=== PATIENT | female | born 1965 | race Caucasian/White ===

== ENCOUNTER 2018-06-15 03:13 | Inpatient (IN) | payer SELFPAY ==
[~2018-06-15] VITALS: Ht 165.1 cm; Wt 133.3 kg
[2018-06-15] MEDS ORDERED: SODIUM CHLORIDE 0.9% 1,000 ML IV ONE ×2 (03:30→04:15)
[2018-06-15] MEDS ORDERED: MIDAZOLAM HCL 2 MG/2 ML VIAL IVP ONE (03:30)
[2018-06-15 03:35] LABS: BASOPHILS % (AUTO) 0.6 % (0.0-2.0); EOSINOPHILS % (AUTO) 2.8 % (1.0-6.0); HEMOGLOBIN 12.8 g/dL (12.0-16.0); LYMPHOCYTES # (AUTO) 9.5 K/uL (1.0-4.8); LYMPHOCYTES % (AUTO) 48.3 % (22.0-44.0); MEAN CORPUSCULAR HEMOGLOBIN 24.2 pg (26.0-34.0); MEAN CORPUSCULAR HGB CONC 28.2 G/dL (31.0-37.0); MEAN CORPUSCULAR VOLUME 86 fL (80-100); MONOCYTES % (AUTO) 4.9 % (2.0-9.0); NEUTROPHILS # (AUTO) 8.5 K/uL (1.8-7.7); NEUTROPHILS % (AUTO) 43.4 % (40.0-70.0); PLATELET COUNT (AUTO) 346 K/uL (150-450); RED BLOOD CELL COUNT(AUTO) 5.29 MIL/uL (4.00-5.20); RED CELL DISTRIBUTION WIDTH 17.6 % (11.5-14.5)
[2018-06-15 03:39] LABS: GLUCOSE,POINT OF CARE 373 MG/DL (70-110)
[2018-06-15] MEDS ORDERED: PROPOFOL 1000 MG/ISO-OSM 100 ML IV ONE (03:44)
[2018-06-15] MEDS ORDERED: NITROGLYCERIN 2% (1 GM=INCH) PACKET TP ONE (03:45)
[2018-06-15] MEDS: PROPOFOL 1000 MG/ISO-OSM 100 ML IV PRN ×6 (03:52→22:17)
[2018-06-15 03:53] LABS: ABG A-A DIFF O2 418.5 mmHg (10-20.0); ABG BASE EXCESS -14.4 mmol/L (-2.0-3.0); ABG CARBOXYHEMOGLOBIN 0.4 % (0.0-1.5); ABG HCO3 13.5 mmol/L (22.0-26.0); ABG METHEMOGLOBIN 0.3 % (0.0-1.5); ABG OXYGEN CONTENT 19.2 mL/dL (15.0-23.0); ABG OXYGEN SATURATION 99.1 % (95.0-98.0); ABG OXYHEMOGLOBIN 98.4 % (94.0-100.0); ABG PCO2 54 mmHg (35-45); ABG PH 7.079 (7.35-7.450); ABG TOTAL HEMOGLOBIN 13.5 G/dL (12.0-18.0); PO2, ARTERIAL BG 240.6 mmHg (66.0-74.0); SITE, BLOOD GAS RT RADIAL; SOURCE, BLOOD GAS ARTERIAL; TEMPERATURE, FAHRENHEIT, BG 98.6 FAHREN (96.0-98.6)
[2018-06-15 03:54] LABS: O2 DEVICE,BLOOD GAS VENTILATOR (ROOM AIR); PEEP,BG 5 cm H2O; VT, ABG 600 ml
[2018-06-15 04:03] LABS: B-TYPE NATRIURETIC PEPTIDE 1300 pg/mL (0-100)
[2018-06-15 04:07] LABS: ALANINE AMINOTRANSFERASE 20 U/L (12-78); ALBUMIN 2.3 g/dL (3.4-5.0); ALKALINE PHOSPHATASE 134 U/L (46-116); ANION GAP 21 mmol/L (8-16); ASPARTATE AMINOTRANSFERASE 54 U/L (15-37); BILIRUBIN,TOTAL 0.2 mg/dL (0.1-1.0); CALCIUM, TOTAL 8.8 mg/dL (8.8-10.5); CARBON DIOXIDE 18 mmol/L (22-29); CHLORIDE 100 mmol/L (98-107); CREATINE KINASE, TOTAL ONLY 89 U/L (26-192); CREATININE 1.75 mg/dL (0.60-1.30); GLOMERULAR FILTR. RATE CALC 25 mL/min (>60); LIPASE 233 U/L (73-393); POTASSIUM 3.9 mmol/L (3.5-5.1); SODIUM SERUM 139 mmol/L (136-145); TOTAL PROTEIN, SERUM 6.8 g/dL (6.4-8.2); UREA NITROGEN, BLOOD 21 mg/dL (7-18)
[2018-06-15 04:08] LABS: GLUCOSE,RANDOM 558 mg/dL (70-110)
[2018-06-15 04:14] LABS: APPEARANCE,URINE CLOUDY (CLEAR); BILIRUBIN,URINE NEGATIVE (NEGATIVE); GLUCOSE, URINE (UA) >=1000 mg/dL (NEGATIVE); KETONES,URINE NEGATIVE (NEGATIVE); LEUKOCYTE ESTERASE ,URINE NEGATIVE (NEGATIVE); NITRATE,URINE NEGATIVE (NEGATIVE); OCCULT BLOOD,URINE MODERATE (NEGATIVE); PH,URINE 6.5 (5.0-8.0); PROTEIN,URINE SEE CONFIRM (NEGATIVE); UROBILINOGEN,URINE 0.2 mg/dL (<=1.0)
[2018-06-15] MEDS ORDERED: ETOMIDATE 2 MG/ML 10 ML VIAL IVP ONE (04:15)
[2018-06-15 04:20] LABS: BACTERIA,URINE Moderate /HPF (None Seen); RBC,URINE 26-50 /HPF (0-2)
[2018-06-15 04:21] LABS: SQUAMOUS EPITHELIAL CELL,UR Rare /LPF (None Seen); SULFOSALICYLIC ACID,URINE 4+ (Negative)
[2018-06-15 04:22] LABS: AMPHET/METH SCREEN,URINE NEGATIVE (NEGATIVE); BARBITURATE SCREEN, URINE NEGATIVE (NEGATIVE); BENZODIAZEPINES SCREEN,URINE NEGATIVE (NEGATIVE); CANNABINOID SCREEN,URINE NEGATIVE (NEGATIVE); COCAINE SCREEN,URINE NEGATIVE (NEGATIVE); METHADONE SCREEN, URINE NEGATIVE (NEGATIVE); OPIATE SCREEN,URINE NEGATIVE (NEGATIVE)
[2018-06-15] MEDS ORDERED: LORazepam 2 MG/ML VIAL ONE (04:25)
[2018-06-15 04:26] LABS: PHENCYCLIDINE SCREEN,URINE NEGATIVE (NEGATIVE)
[2018-06-15 04:26] LABS: ACETAMINOPHEN < 2 mcg/mL (10-30)
[2018-06-15] MEDS ORDERED: LORazepam 2 MG/ML VIAL IVP ONE (04:30)
[2018-06-15] MEDS ORDERED: VANCOMYCIN HCL 1 GM/D5% WATER 200 ML IV ONE ×2 (04:30→06:30)
[2018-06-15] MEDS ORDERED: ONDANSETRON HCL 4 MG/2 ML VIAL IVP PRN (05:00)
[2018-06-15] MEDS ORDERED: INSULIN REGULAR, HUMAN 100 UNITS/ML IVP ONE ×2 (05:00→08:30)
[2018-06-15] MEDS ORDERED: ACETAMINOPHEN 325 MG TABLET PO PRN (05:00)
[2018-06-15] MEDS ORDERED: 0.9% SODIUM CHLORIDE 10 ML SYRINGE IVP PRN ×2 (05:00→08:15)
[2018-06-15 05:05] LABS: GLUCOSE,POINT OF CARE 491 MG/DL (70-110)
[2018-06-15 05:13] LABS: ABG A-A DIFF O2 568.9 mmHg (10-20.0); ABG BASE EXCESS -6.6 mmol/L (-2.0-3.0); ABG CARBOXYHEMOGLOBIN 0.5 % (0.0-1.5); ABG HCO3 19.3 mmol/L (22.0-26.0); ABG OXYGEN CONTENT 16.7 mL/dL (15.0-23.0); ABG OXYGEN SATURATION 97.1 % (95.0-98.0); ABG OXYHEMOGLOBIN 96.6 % (94.0-100.0); ABG PCO2 43 mmHg (35-45); ABG PH 7.284 (7.35-7.450); ABG TOTAL HEMOGLOBIN 12.2 G/dL (12.0-18.0); PO2, ARTERIAL BG 100.8 mmHg (66.0-74.0); SITE, BLOOD GAS RT RADIAL; SOURCE, BLOOD GAS ARTERIAL; TEMPERATURE, FAHRENHEIT, BG 98.6 FAHREN (96.0-98.6)
[2018-06-15 05:14] LABS: O2 DEVICE,BLOOD GAS VENTILATOR (ROOM AIR); PEEP,BG 5 cm H2O; VT, ABG 600 ml
[2018-06-15 05:31] LABS: HCG,QUANTITATIVE 3 mIU/mL (0-6)
[2018-06-15 05:59] LABS: CALCIUM, TOTAL 8.3 mg/dL (8.8-10.5); CREATININE 1.51 mg/dL (0.60-1.30); POTASSIUM 3.8 mmol/L (3.5-5.1)
[2018-06-15 06:00] VITALS: BP 124/90
[2018-06-15] MEDS ORDERED: PIPERACILLIN/TAZO 3.375 GM/D5W 50 ML IV SCH (06:00)
[2018-06-15 06:07] LABS: LACTIC ACID 3.5 mmol/L (0.4-2.0)
[2018-06-15 08:00] VITALS: BP_SYST 137; BP_SYST 148; BP_DIAS 71; BP_DIAS 73
[2018-06-15] MEDS ORDERED: SODIUM CHLORIDE 0.9% 1,000 ML IV SCH (08:20)
[2018-06-15] MEDS ORDERED: POTASSIUM CHL 20 MEQ/0.45% NS 1,000 ML IV PRN (08:20)
[2018-06-15] MEDS ORDERED: INSULIN REGULAR, HUMAN 100 UNITS in SODIUM CHLORIDE 0.9% 99 ML IV PRN ×2 (08:20)
[2018-06-15] MEDS ORDERED: POTASSIUM CHLORIDE 40 MEQ in SODIUM CHLORIDE 0.45% 1,000 ML IV PRN (08:20)
[2018-06-15] MEDS ORDERED: DEXTROSE 5%-0.45% SODIUM CHL 1,000 ML IV PRN (08:20)
[2018-06-15] MEDS ORDERED: SODIUM CHLORIDE 0.45% 1,000 ML IV PRN (08:20)
[2018-06-15] MEDS ORDERED: INSULIN REGULAR, HUMAN 100 UNITS/ML IVP PRN (08:30)
[2018-06-15] MEDS ORDERED: DEXTROSE 50%-WATER 25 GM/50 ML SYRINGE IVP PRN (08:30)
[2018-06-15] MEDS ORDERED: PANTOPRAZOLE SODIUM 40 MG/VIAL IVP SCH (09:00)
[2018-06-15 09:23] LABS: CALCIUM, TOTAL 8.4 mg/dL (8.8-10.5); CREATININE 1.42 mg/dL (0.60-1.30)
[2018-06-15 09:24] LABS: BASOPHILS % (AUTO) 1.1 % (0.0-2.0); EOSINOPHILS % (AUTO) 0.2 % (1.0-6.0); HEMOGLOBIN 11.6 g/dL (12.0-16.0); LYMPHOCYTES # (AUTO) 0.5 K/uL (1.0-4.8); LYMPHOCYTES % (AUTO) 4.2 % (22.0-44.0); MEAN CORPUSCULAR HEMOGLOBIN 24.2 pg (26.0-34.0); MEAN CORPUSCULAR HGB CONC 31.4 G/dL (31.0-37.0); MEAN CORPUSCULAR VOLUME 77 fL (80-100); MONOCYTES # (AUTO) 0.1 K/uL (0.1-1.0); MONOCYTES % (AUTO) 0.5 % (2.0-9.0); NEUTROPHILS # (AUTO) 12.1 K/uL (1.8-7.7); PLATELET COUNT (AUTO) 234 K/uL (150-450); RED BLOOD CELL COUNT(AUTO) 4.81 MIL/uL (4.00-5.20); RED CELL DISTRIBUTION WIDTH 16.7 % (11.5-14.5)
[2018-06-15 10:00] VITALS: BP 142/65
[2018-06-15] MEDS: PIPERACILLIN/TAZO 3.375 GM/D5W 50 ML IV SCH ×3 (11:13→22:18)
[2018-06-15 12:00] VITALS: BP 123/55
[2018-06-15] MEDS ORDERED: ETOMIDATE 2 MG/ML 10 ML VIAL IV ONE (12:00)
[2018-06-15] MEDS ORDERED: SUCCINYLCHOLINE CHLORIDE 20 MG/ML 10 ML VIAL IVP ONE (12:00)
[2018-06-15 13:36] LABS: ABG A-A DIFF O2 386.6 mmHg (10-20.0); ABG BASE EXCESS -5.6 mmol/L (-2.0-3.0); ABG CARBOXYHEMOGLOBIN 0.3 % (0.0-1.5); ABG HCO3 20.8 mmol/L (22.0-26.0); ABG METHEMOGLOBIN 0.2 % (0.0-1.5); ABG OXYGEN CONTENT 17.7 mL/dL (15.0-23.0); ABG OXYGEN SATURATION 99.6 % (95.0-98.0); ABG OXYHEMOGLOBIN 99.1 % (94.0-100.0); ABG PCO2 31 mmHg (35-45); ABG PH 7.406 (7.35-7.450); ABG TOTAL HEMOGLOBIN 12.2 G/dL (12.0-18.0); O2 DEVICE,BLOOD GAS VENTILATOR (ROOM AIR); PO2, ARTERIAL BG 293.2 mmHg (84.0-92.0); SITE, BLOOD GAS RT RADIAL; SOURCE, BLOOD GAS ARTERIAL; VT, ABG 600 ml
[2018-06-15 13:37] LABS: PEEP,BG 5 cm H2O
[2018-06-15] MEDS ORDERED: LORA1TAB3 PO (13:51)
[2018-06-15] MEDS ORDERED: BENZ-51 PO (13:51)
[2018-06-15] MEDS ORDERED: FURO40 PO (13:51)
[2018-06-15] MEDS ORDERED: HYDR-2924 PO (13:51)
[2018-06-15] MEDS ORDERED: GLYB5 PO (13:51)
[2018-06-15] MEDS ORDERED: SITA50 PO (13:51)
[2018-06-15] MEDS ORDERED: SPIR25 PO (13:51)
[2018-06-15] MEDS ORDERED: ASPI81TA39 PO (13:51)
[2018-06-15] MEDS ORDERED: CETI10TA59 PO (13:51)
[2018-06-15] MEDS ORDERED: PRAV20TA4 PO (13:51)
[2018-06-15] MEDS ORDERED: DILT120C88 PO (13:51)
[2018-06-15] MEDS ORDERED: VALS160T2 PO (13:51)
[2018-06-15] MEDS ORDERED: METO50 PO (13:51)
[2018-06-15] MEDS ORDERED: VITAD1000 PO (13:51)
[2018-06-15] MEDS ORDERED: BARIUM SULFATE 0.1% SUSPENSION 450 ML BOTTLE ONE (13:59)
[2018-06-15 14:00] VITALS: BP 118/46
[2018-06-15] MEDS: DOXYCYCLINE HYCLATE 100 MG in DEXTROSE 5%-WATER 100 ML IV SCH (15:16)
[2018-06-15 15:20] LABS: CALCIUM, TOTAL 8.4 mg/dL (8.8-10.5); CREATININE 1.73 mg/dL (0.60-1.30)
[2018-06-15 15:26] LABS: POTASSIUM 2.9 mmol/L (3.5-5.1)
[2018-06-15] MEDS ORDERED: GLUCAGON,HUMAN RECOMBINANT 1 MG VIAL IM PRN (15:45)
[2018-06-15] MEDS: SODIUM CHLORIDE 0.9% 500 ML IV SCH (15:45)
[2018-06-15] MEDS: POTASSIUM CHL 10 MEQ/WATER 50 ML IV PRN ×3 (16:07→17:23)
[2018-06-15 16:09] LABS: GLUCOSE,POINT OF CARE 118 MG/DL (70-110)
[2018-06-15 16:09] LABS: GLUCOSE,POINT OF CARE 48 MG/DL (70-110)
[2018-06-15 17:08] LABS: INFLUENZA TYPE A NEGATIVE FOR TYPE A (NEGATIVE); INFLUENZA TYPE B NEGATIVE FOR TYPE B (NEGATIVE)
[2018-06-15] MEDS ORDERED: SODIUM CHLORIDE 0.9% 250 ML IV ONE (17:27)
[2018-06-15] MEDS: INSULIN LISPRO 100 UNITS/ML SQ PRN (18:18)
[2018-06-15 20:00] VITALS: BP 114/47
[2018-06-15 20:54] LABS: GLUCOSE,POINT OF CARE 343 MG/DL (70-110)
[2018-06-15 20:54] LABS: GLUCOSE,POINT OF CARE 149 MG/DL (70-110)
[2018-06-15 20:54] LABS: GLUCOSE,POINT OF CARE 304 MG/DL (70-110)
[2018-06-15 20:54] LABS: GLUCOSE,POINT OF CARE 85 MG/DL (70-110)
[2018-06-15 20:54] LABS: GLUCOSE,POINT OF CARE 212 MG/DL (70-110)
[2018-06-15 20:54] LABS: GLUCOSE,POINT OF CARE 103 MG/DL (70-110)
[2018-06-15] MEDS ORDERED: FUROSEMIDE 20 MG/2 ML VIAL IVP SCH (21:00)
[2018-06-15] MEDS: VANCOMYCIN HCL 1 GM/D5% WATER 200 ML IV SCH (21:23)
[2018-06-15] MEDS: INSULIN GLARGINE,HUM.REC.ANLOG 100 UNITS/ML SQ SCH (21:25)
[2018-06-15 21:29] LABS: GLUCOSE,POINT OF CARE 139 MG/DL (70-110)
[2018-06-16] VITALS: BP 108/45
[2018-06-16] MEDS: PROPOFOL 1000 MG/ISO-OSM 100 ML IV PRN ×2 (01:38→05:17)
[2018-06-16] MEDS: DOXYCYCLINE HYCLATE 100 MG in DEXTROSE 5%-WATER 100 ML IV SCH ×2 (01:39→16:48)
[2018-06-16] MEDS: SODIUM CHLORIDE 0.9% 500 ML IV SCH ×3 (01:39→23:25)
[2018-06-16 04:00] VITALS: BP 110/44
[2018-06-16] MEDS: PIPERACILLIN/TAZO 3.375 GM/D5W 50 ML IV SCH (04:13)
[2018-06-16 04:42] LABS: ABG A-A DIFF O2 125.7 mmHg (10-20.0); ABG BASE EXCESS -6.4 mmol/L (-2.0-3.0); ABG CARBOXYHEMOGLOBIN 0.1 % (0.0-1.5); ABG HCO3 20.1 mmol/L (22.0-26.0); ABG METHEMOGLOBIN 0.3 % (0.0-1.5); ABG OXYGEN CONTENT 14.9 mL/dL (15.0-23.0); ABG OXYGEN SATURATION 96.9 % (95.0-98.0); ABG OXYHEMOGLOBIN 96.5 % (94.0-100.0); ABG PCO2 29 mmHg (35-45); ABG TOTAL HEMOGLOBIN 10.9 G/dL (12.0-18.0); PO2, ARTERIAL BG 90.6 mmHg (84.0-92.0); SOURCE, BLOOD GAS ARTERIAL; TEMPERATURE, FAHRENHEIT, BG 98.8 FAHREN (96.0-98.6)
[2018-06-16 04:44] LABS: O2 DEVICE,BLOOD GAS VENT (ROOM AIR); PEEP,BG 5 cm H2O; SITE, BLOOD GAS RT RADIAL; SPONTANEOUS VT, BG 595 ml; VT, ABG 600 ml
[2018-06-16 04:53] LABS: HEMATOCRIT 31.6 % (36-46); MEAN CORPUSCULAR HEMOGLOBIN 24.3 pg (26.0-34.0); MEAN CORPUSCULAR HGB CONC 31.7 G/dL (31.0-37.0); MEAN CORPUSCULAR VOLUME 77 fL (80-100); PLATELET COUNT (AUTO) 201 K/uL (150-450); RED BLOOD CELL COUNT(AUTO) 4.12 MIL/uL (4.00-5.20); RED CELL DISTRIBUTION WIDTH 17.1 % (11.5-14.5)
[2018-06-16 05:05] LABS: CALCIUM, TOTAL 7.9 mg/dL (8.8-10.5); CREATININE 2.44 mg/dL (0.60-1.30)
[2018-06-16 05:21] LABS: BAND NEUTROPHILS % (MANUAL) 7 % (0-5); LYMPHOCYTES % (MANUAL) 6 % (22-44); MONOCYTES % (MANUAL) 4 % (2-9); SEGMENTED NEUTROPHILS % 83 % (40-70)
[2018-06-16] MEDS: INSULIN LISPRO 100 UNITS/ML SQ PRN ×4 (07:00→20:33)
[2018-06-16 08:00] VITALS: BP 157/68
[2018-06-16] MEDS: VANCOMYCIN HCL 1 GM/D5% WATER 200 ML IV SCH ×2 (09:10→20:31)
[2018-06-16] MEDS: INSULIN GLARGINE,HUM.REC.ANLOG 100 UNITS/ML SQ SCH ×2 (09:10→20:32)
[2018-06-16] MEDS: PIPERACILLIN SODIUM/TAZOBACTAM 2.25 GM in DEXTROSE 5%-WATER 50 ML IV SCH ×3 (09:11→23:25)
[2018-06-16 12:00] VITALS: BP 126/78
[2018-06-16 13:19] LABS: GLUCOSE,POINT OF CARE 222 MG/DL (70-110)
[2018-06-16 16:00] VITALS: BP 139/86
[2018-06-16] MEDS: HydrALAZINE HCL 50 MG TABLET PO SCH ×3 (16:49→20:31)
[2018-06-16] MEDS: GlyBURIDE 5 MG TABLET PO SCH (17:31)
[2018-06-16 18:49] LABS: GLUCOSE,POINT OF CARE 154 MG/DL (70-110)
[2018-06-16 20:00] VITALS: BP 228/109
[2018-06-16] MEDS: METOPROLOL TARTRATE 50 MG TABLET PO SCH (20:31)
[2018-06-16] MEDS: PRAVASTATIN SODIUM 20 MG TABLET PO SCH (20:31)
[2018-06-16] MEDS ORDERED: DILTIAZEM HCL CD 120 MG ER CAPSULE PO SCH (21:00)
[2018-06-16] MEDS ORDERED: DEXTROSE 50%-WATER 25 GM/50 ML SYG IVP PRN (21:15)
[2018-06-17] VITALS (7 sets, daily range): BP systolic 135–181; BP diastolic 64–82
[2018-06-17] MEDS: DOXYCYCLINE HYCLATE 100 MG in DEXTROSE 5%-WATER 100 ML IV SCH ×2 (03:16→13:16)
[2018-06-17] MEDS: PIPERACILLIN SODIUM/TAZOBACTAM 2.25 GM in DEXTROSE 5%-WATER 50 ML IV SCH ×4 (03:16→23:31)
[2018-06-17 05:16] LABS: BASOPHILS % (AUTO) 0.5 % (0.0-2.0); EOSINOPHILS % (AUTO) 3.4 % (1.0-6.0); HEMATOCRIT 30.8 % (36-46); HEMOGLOBIN 9.8 g/dL (12.0-16.0); MEAN CORPUSCULAR HEMOGLOBIN 24.6 pg (26.0-34.0); MEAN CORPUSCULAR HGB CONC 31.7 G/dL (31.0-37.0); MEAN CORPUSCULAR VOLUME 78 fL (80-100); MONOCYTES # (AUTO) 0.5 K/uL (0.1-1.0); MONOCYTES % (AUTO) 4.9 % (2.0-9.0); NEUTROPHILS % (AUTO) 81.2 % (40.0-70.0); PLATELET COUNT (AUTO) 188 K/uL (150-450); RED BLOOD CELL COUNT(AUTO) 3.97 MIL/uL (4.00-5.20); RED CELL DISTRIBUTION WIDTH 17.1 % (11.5-14.5)
[2018-06-17 05:18] LABS: CALCIUM, TOTAL 7.7 mg/dL (8.8-10.5); CREATININE 2.53 mg/dL (0.60-1.30); POTASSIUM 3.6 mmol/L (3.5-5.1)
[2018-06-17 05:39] LABS: PLATELET MORPHOLOGY COMMENT LARGE PLTS PRESENT
[2018-06-17 05:41] LABS: VANCOMYCIN,RANDOM 31.3 mcg/mL (25.0-50.0)
[2018-06-17 06:39] LABS: GLUCOSE,POINT OF CARE 101 MG/DL (70-110)
[2018-06-17 06:39] LABS: GLUCOSE,POINT OF CARE 134 MG/DL (70-110)
[2018-06-17] MEDS: SODIUM CHLORIDE 0.9% 500 ML IV SCH (08:14)
[2018-06-17] MEDS: SPIRONOLACTONE 25 MG TABLET PO SCH (08:14)
[2018-06-17] MEDS: HydrALAZINE HCL 50 MG TABLET PO SCH ×4 (08:14→23:31)
[2018-06-17] MEDS: SitaGLIPtin PHOSPHATE 50 MG TABLET PO SCH (08:16)
[2018-06-17] MEDS: METOPROLOL TARTRATE 50 MG TABLET PO SCH ×2 (08:16→20:44)
[2018-06-17] MEDS: ASPIRIN 81 MG CHEWABLE TABLET PO SCH (08:16)
[2018-06-17] MEDS: GlyBURIDE 5 MG TABLET PO SCH ×2 (08:16→16:32)
[2018-06-17] MEDS: INSULIN GLARGINE,HUM.REC.ANLOG 100 UNITS/ML SQ SCH ×2 (08:18→23:34)
[2018-06-17] MEDS ORDERED: VANCOMYCIN HCL 1.5 GM in DEXTROSE 5%-WATER 250 ML IV SCH (10:00)
[2018-06-17] MEDS: INSULIN LISPRO 100 UNITS/ML SQ PRN (11:54)
[2018-06-17 14:20] LABS: GLUCOSE,POINT OF CARE 159 MG/DL (70-110)
[2018-06-17] MEDS ORDERED: SODIUM CHLORIDE 0.9% 1,000 ML IV SCH (15:07)
[2018-06-17] MEDS ORDERED: SODIUM CHLORIDE 0.9% 1,000 ML IV ONE (15:15)
[2018-06-17 19:44] LABS: GLUCOSE,POINT OF CARE 108 MG/DL (70-110)
[2018-06-17] MEDS ORDERED: ACETAMINOPHEN 325 MG TABLET PO PRN (19:45)
[2018-06-17] MEDS: DILTIAZEM HCL CD 240 MG ER CAPSULE PO SCH (20:44)
[2018-06-17] MEDS: PRAVASTATIN SODIUM 20 MG TABLET PO SCH (20:45)
[2018-06-17 22:34] LABS: GLUCOMETER DEV NAME(LOC) 5N.1; GLUCOSE,POINT OF CARE 130 MG/DL (70-110)
[2018-06-18 00:30] VITALS: BP 161/56
[2018-06-18] MEDS: DOXYCYCLINE HYCLATE 100 MG in DEXTROSE 5%-WATER 100 ML IV SCH ×2 (03:48→14:27)
[2018-06-18 04:06] VITALS: BP 143/60
[2018-06-18] MEDS: PIPERACILLIN SODIUM/TAZOBACTAM 2.25 GM in DEXTROSE 5%-WATER 50 ML IV SCH ×4 (04:34→22:26)
[2018-06-18 06:20] LABS: GLUCOMETER DEV NAME(LOC) 5N.1; GLUCOSE,POINT OF CARE 125 MG/DL (70-110)
[2018-06-18 06:20] LABS: GLUCOMETER DEV NAME(LOC) 5S.2; GLUCOSE,POINT OF CARE 115 MG/DL (70-110)
[2018-06-18 07:59] VITALS: BP 146/66
[2018-06-18 08:31] LABS: CALCIUM, TOTAL 8.1 mg/dL (8.8-10.5); CREATININE 2.44 mg/dL (0.60-1.30); POTASSIUM 3.7 mmol/L (3.5-5.1)
[2018-06-18] MEDS: SitaGLIPtin PHOSPHATE 50 MG TABLET PO SCH (08:44)
[2018-06-18] MEDS: HydrALAZINE HCL 50 MG TABLET PO SCH ×4 (08:44→22:27)
[2018-06-18] MEDS: GlyBURIDE 5 MG TABLET PO SCH ×2 (08:44→17:44)
[2018-06-18] MEDS: ASPIRIN 81 MG CHEWABLE TABLET PO SCH (08:44)
[2018-06-18] MEDS: METOPROLOL TARTRATE 50 MG TABLET PO SCH ×2 (08:45→22:27)
[2018-06-18] MEDS: INSULIN GLARGINE,HUM.REC.ANLOG 100 UNITS/ML SQ SCH ×2 (08:48→22:32)
[2018-06-18] MEDS ORDERED: SODIUM CHLORIDE 0.9% 250 ML IV ONE (10:32)
[2018-06-18] MEDS: AmLODIPine BESYLATE 5 MG TABLET PO SCH (11:33)
[2018-06-18] MEDS: SPIRONOLACTONE 25 MG TABLET PO SCH (11:33)
[2018-06-18] MEDS: INSULIN LISPRO 100 UNITS/ML SQ PRN ×2 (11:38→17:44)
[2018-06-18 11:39] VITALS: BP 178/76
[2018-06-18 15:54] VITALS: BP 155/65
[2018-06-18 19:54] VITALS: BP 130/83
[2018-06-18] MEDS: PRAVASTATIN SODIUM 20 MG TABLET PO SCH (22:26)
[2018-06-18] MEDS: DILTIAZEM HCL CD 240 MG ER CAPSULE PO SCH (22:27)
[2018-06-19 00:38] VITALS: BP 147/62
[2018-06-19] MEDS: DOXYCYCLINE HYCLATE 100 MG in DEXTROSE 5%-WATER 100 ML IV SCH ×2 (03:00→14:53)
[2018-06-19] MEDS: PIPERACILLIN SODIUM/TAZOBACTAM 2.25 GM in DEXTROSE 5%-WATER 50 ML IV SCH ×4 (04:27→21:31)
[2018-06-19 05:13] VITALS: BP 158/76
[2018-06-19 05:48] LABS: BASOPHILS % (AUTO) 0.6 % (0.0-2.0); EOSINOPHILS % (AUTO) 4.5 % (1.0-6.0); HEMATOCRIT 31.9 % (36-46); HEMOGLOBIN 10.1 g/dL (12.0-16.0); LYMPHOCYTES % (AUTO) 12.7 % (22.0-44.0); MEAN CORPUSCULAR HEMOGLOBIN 24.6 pg (26.0-34.0); MEAN CORPUSCULAR HGB CONC 31.8 G/dL (31.0-37.0); MEAN CORPUSCULAR VOLUME 77 fL (80-100); MONOCYTES # (AUTO) 0.5 K/uL (0.1-1.0); MONOCYTES % (AUTO) 6.1 % (2.0-9.0); NEUTROPHILS # (AUTO) 5.8 K/uL (1.8-7.7); NEUTROPHILS % (AUTO) 76.1 % (40.0-70.0); PLATELET COUNT (AUTO) 193 K/uL (150-450); RED BLOOD CELL COUNT(AUTO) 4.12 MIL/uL (4.00-5.20)
[2018-06-19 06:22] LABS: ALBUMIN 1.8 g/dL (3.4-5.0); BILIRUBIN,TOTAL 0.4 mg/dL (0.1-1.0); CALCIUM, TOTAL 7.8 mg/dL (8.8-10.5); CREATININE 2.34 mg/dL (0.60-1.30); POTASSIUM 3.8 mmol/L (3.5-5.1); TOTAL PROTEIN, SERUM 5.9 g/dL (6.4-8.2)
[2018-06-19 08:01] VITALS: BP 165/55
[2018-06-19] MEDS: SitaGLIPtin PHOSPHATE 50 MG TABLET PO SCH (08:51)
[2018-06-19] MEDS: ASPIRIN 81 MG CHEWABLE TABLET PO SCH (08:51)
[2018-06-19] MEDS: HydrALAZINE HCL 50 MG TABLET PO SCH ×4 (08:51→21:05)
[2018-06-19] MEDS: METOPROLOL TARTRATE 50 MG TABLET PO SCH ×2 (08:51→21:05)
[2018-06-19] MEDS: SPIRONOLACTONE 25 MG TABLET PO SCH (08:52)
[2018-06-19] MEDS: GlyBURIDE 5 MG TABLET PO SCH ×2 (08:52→17:28)
[2018-06-19] MEDS: AmLODIPine BESYLATE 5 MG TABLET PO SCH (08:52)
[2018-06-19] MEDS: INSULIN GLARGINE,HUM.REC.ANLOG 100 UNITS/ML SQ SCH ×2 (09:01→21:28)
[2018-06-19 10:11] LABS: LEGIONELLA PNEUMO AG URINE Negative (Negative); ORGANISM ID Not indicated.; S PNEUMO SOURCE Urine; STREP PNEUMONIAE AG URINE Negative (Negative); STREP.PNEUMO BODY FLUID CULT. Not Indicated
[2018-06-19 10:54] VITALS: BP 152/66
[2018-06-19] MEDS ORDERED: DOXY100C PO (12:14)
[2018-06-19] MEDS ORDERED: AMOX1TAB15 PO (12:14)
[2018-06-19] MEDS ORDERED: AMLO-512 PO (12:16)
[2018-06-19] MEDS: INSULIN LISPRO 100 UNITS/ML SQ PRN ×2 (12:30→21:29)
[2018-06-19] MEDS ORDERED: INSLAN SQ (12:31)
[2018-06-19 15:30] VITALS: BP 146/72
[2018-06-19] MEDS ORDERED: ACETAMINOPHEN 325 MG TABLET PO PRN (18:45)
[2018-06-19 20:28] LABS: GLUCOMETER DEV NAME(LOC) 5S.2; GLUCOSE,POINT OF CARE 143 MG/DL (70-110)
[2018-06-19 20:29] LABS: GLUCOMETER DEV NAME(LOC) 5S.2; GLUCOSE,POINT OF CARE 106 MG/DL (70-110)
[2018-06-19 20:29] LABS: GLUCOMETER DEV NAME(LOC) 5S.2; GLUCOSE,POINT OF CARE 211 MG/DL (70-110)
[2018-06-19 20:40] VITALS: BP 165/66
[2018-06-19] MEDS: DILTIAZEM HCL CD 240 MG ER CAPSULE PO SCH (21:05)
[2018-06-19] MEDS: PRAVASTATIN SODIUM 20 MG TABLET PO SCH (21:05)
[2018-06-19 21:58] LABS: GLUCOMETER DEV NAME(LOC) 5S.2; GLUCOSE,POINT OF CARE 134 MG/DL (70-110)
[2018-06-19] MEDS ORDERED: SODIUM CHLORIDE 0.9% 250 ML IV ONE (22:08)
[2018-06-20 00:20] VITALS: BP 128/77
[2018-06-20] MEDS: DOXYCYCLINE HYCLATE 100 MG in DEXTROSE 5%-WATER 100 ML IV SCH ×2 (01:30→15:23)
[2018-06-20] MEDS: PIPERACILLIN SODIUM/TAZOBACTAM 2.25 GM in DEXTROSE 5%-WATER 50 ML IV SCH ×3 (03:48→16:00)
[2018-06-20 05:00] LABS: GLUCOMETER DEV NAME(LOC) 5N.1; GLUCOSE,POINT OF CARE 164 MG/DL (70-110)
[2018-06-20 05:00] LABS: GLUCOMETER DEV NAME(LOC) 5N.1; GLUCOSE,POINT OF CARE 199 MG/DL (70-110)
[2018-06-20 05:00] LABS: GLUCOMETER DEV NAME(LOC) 5N.1; GLUCOSE,POINT OF CARE 106 MG/DL (70-110)
[2018-06-20 05:00] LABS: GLUCOMETER DEV NAME(LOC) 5N.1; GLUCOSE,POINT OF CARE 213 MG/DL (70-110)
[2018-06-20 05:01] LABS: GLUCOMETER DEV NAME(LOC) 5N.1; GLUCOSE,POINT OF CARE 141 MG/DL (70-110)
[2018-06-20 05:39] VITALS: BP 160/61
[2018-06-20 05:39] LABS: GLUCOMETER DEV NAME(LOC) 5N.2; GLUCOSE,POINT OF CARE 133 MG/DL (70-110)
[2018-06-20] MEDS: INSULIN LISPRO 100 UNITS/ML SQ PRN ×3 (05:43→18:11)
[2018-06-20 07:33] VITALS: BP 166/61
[2018-06-20] MEDS: SPIRONOLACTONE 25 MG TABLET PO SCH (09:15)
[2018-06-20] MEDS: SitaGLIPtin PHOSPHATE 50 MG TABLET PO SCH (09:15)
[2018-06-20] MEDS: GlyBURIDE 5 MG TABLET PO SCH ×2 (09:15→18:09)
[2018-06-20] MEDS: HydrALAZINE HCL 50 MG TABLET PO SCH ×3 (09:16→17:11)
[2018-06-20] MEDS: METOPROLOL TARTRATE 50 MG TABLET PO SCH (09:16)
[2018-06-20] MEDS: ASPIRIN 81 MG CHEWABLE TABLET PO SCH (09:16)
[2018-06-20] MEDS: AmLODIPine BESYLATE 5 MG TABLET PO SCH (09:16)
[2018-06-20] MEDS: INSULIN GLARGINE,HUM.REC.ANLOG 100 UNITS/ML SQ SCH (09:28)
[2018-06-20 11:29] VITALS: BP 162/87
[2018-06-20 12:17] LABS: CALCIUM, TOTAL 8.2 mg/dL (8.8-10.5); CREATININE 2.3 mg/dL (0.60-1.30); POTASSIUM 3.8 mmol/L (3.5-5.1)
[2018-06-20 14:05] LABS: GLUCOMETER DEV NAME(LOC) 5S.2; GLUCOSE,POINT OF CARE 160 MG/DL (70-110)
[2018-06-20 15:23] VITALS: BP 158/98
[2018-06-20 18:35] LABS: GLUCOMETER DEV NAME(LOC) 5S.2; GLUCOSE,POINT OF CARE 137 MG/DL (70-110)
== END 2018-06-20 19:30 | disposition home or self-care (01) | DRG 871 ==
LOC: EMS 03:15 → ICU 04:55 → EDBD 04:55 → 5S 06-17 18:40
PROVIDERS: ADMIT Internal Medicine; ATTEND Internal Medicine
PROC: 5A1945Z Respiratory Ventilation, 24-96 Consecutive Hours (ICD-10-PCS; principal; 2018-06-15)
PROC: 0BH17EZ Insertion of Endotracheal Airway into Trachea, Via Natural or Artificial Opening (ICD-10-PCS; 2018-06-15)
PROC: 5A12012 Performance of Cardiac Output, Single, Manual (ICD-10-PCS; 2018-06-15)
PROC: 05HY33Z Insertion of Infusion Device into Upper Vein, Percutaneous Approach (ICD-10-PCS; 2018-06-15)
PROC: B54MZZA Ultrasonography of Right Upper Extremity Veins, Guidance (ICD-10-PCS; 2018-06-15)
PROC: 05HY33Z Insertion of Infusion Device into Upper Vein, Percutaneous Approach (ICD-10-PCS; 2018-06-15)
PROC: B54NZZA Ultrasonography of Left Upper Extremity Veins, Guidance (ICD-10-PCS; 2018-06-15)
DX: A41.9 Sepsis, unspecified organism (principal); J18.9 Pneumonia, unspecified organism; E11.10 Type 2 diabetes mellitus with ketoacidosis without coma; J96.00 Acute respiratory failure, unspecified whether with hypoxia or hypercapnia; I50.33 Acute on chronic diastolic (congestive) heart failure; N39.0 Urinary tract infection, site not specified; N17.9 Acute kidney failure, unspecified; I13.0 Hypertensive heart and chronic kidney disease with heart failure and stage 1 through stage 4 chronic kidney disease, or unspecified chronic kidney disease; Z68.42 Body mass index [BMI] 45.0-49.9, adult; E87.6 Hypokalemia; G47.33 Obstructive sleep apnea (adult) (pediatric); E66.9 Obesity, unspecified; N18.9 Chronic kidney disease, unspecified; E11.22 Type 2 diabetes mellitus with diabetic chronic kidney disease; Z87.441 Personal history of nephrotic syndrome
CPT/HCPCS: 31500; 36245; 36569; 36600; 70450; 71250; 72192; 74150; 76770; 76937; 82308; 82805; 82948; 83036; 83605; 84132; 84145; 87040; 87070; 87081; 87086; 87205; 87449; 87804; 87899; 92610; 92950; 93306; 94002; 94003; 97116; 97162; 99291; G0378; G0480; G0481; J0330; J1815; J2060; J2250; J2543; J2704; J3370; J3480; J3490; J7030; J7040; J7050; J7060